=== PATIENT | female | born 1995 | race African-American/Black ===

== ENCOUNTER 2019-04-09 12:49 | Emergency (ER) | payer BC, SELFPAY ==
[2019-04-09 12:50] VITALS: BP 77/53; PULSE 101; RESP 30; TEMP 35.5; O2SAT 100; BMI 22.2
--- NOTE | 2019-04-09 13:04 | US_ITS ---
STUDY: ULTRASOUND TRANSVAGINAL CLINICAL: Female, 24 years old. PAIN TECHNIQUE: Transvaginal. Spectral analysis and Doppler flow were obtained. COMPARISON: None. FINDINGS: Normal uterine size measuring 6.6 cm in maximal craniocaudal dimension. There are no myometrial masses. Normal endometrial thickness measuring 3.7 mm. There are no endometrial masses, and there is no fluid in the endometrial cavity. Normal uterine cervix. Normal right ovary, measuring 2.6 x 3.3 x 1.2 cm. There are multiple follicles without a dominant cyst. Spectral analysis and Doppler flow of the right ovary is within normal limits. Normal left ovary, measuring 1.8 x 1.9 x 1.8 cm. There are multiple follicles without a dominant cyst. Spectral analysis and Doppler flow of the left ovary is within normal limits. There is no free fluid in the pelvis. Polycystic ovary disease: No. US/Transvaginal Non- IMPRESSION: Within normal limits examination. Electronically Signed: Danyelle Doherty MD at 14:06 EST Tel , Service support ,
--- NOTE | 2019-04-09 13:07 | ED.DCSUM_ITS ---
History of Present Illness Chief Complaint: Abd Pain Informant: Patient Current Severity: Severe Maximum Severity: Moderate Narrative: Patient is presenting with 2 hours of sharp stabbing abdominal pain mostly left lower pelvic region however it is somewhat generalized. She has no fever chills cough or congestion. No flank pain, patient denies dysuria or vaginal bleeding. She denies . She has nausea and she is hyperventilating secondary to pain. Past Medical History - Allergies and Home Meds Allergies/Adverse Reactions: Allergies No Known Allergies Allergy (Verified 04/09/19 12:57) Primary Care Physician: Ac Garcia,Out of [NON-STAFF] - Past Medical History: None Lives: - - She is a college student Review of Systems All systems negative except as indicated General: Denies: Fever ENT: Denies: Sore throat Cardiovascular: Reports: Heart racing Respiratory: Denies: Cough, Sputum Gastrointestinal: Reports: Abdominal pain, Nausea, Vomiting. Denies: Diarrhea, Constipation Genitourinary: Denies: Dysuria, Hematuria Musculoskeletal: Denies: Myalgias, Arthralgias Skin: Denies: Rash Neurological: Reports: Parasthesia, - - Secondary to hyperventilation. Denies: Headache, Weakness Psych: Reports: Anxiety Endocrine: Denies: Polydipsia Hematologic: Denies: Easy bruising, Easy bleeding Physical Exam Vital Signs/Narrative: Vital Signs Temp Pulse Resp BP Pulse Ox 04/09/19 12:50 96 F L 101 H 30 H 77/53 L 100 General: - - Patient appears in distress she is actively vomiting she is also hyperventilating Head: Normocephalic Eyes: Perrl ENT: Moist mucous membranes, No rhinorrhea Neck: Supple Cardiovascular: Regular rhythm, No murmurs, Tachycardia Respiratory: No distress, CTA bilaterally Abdomen: - - There is mostly left lower quadrant abdominal pain in the pelvic region. No guarding or rebound. No CVA tenderness Back: Nontender. Negative for: CVA tenderness Extremities: No edema Skin: No rash Neurological: Alert, Oriented x3, Normal Sensation Psychological: - - Anxious Diagnostic/Tx/Re-eval - Medical Decision Making Patient has a normal emergency department work-up. I talked to her she just started her menstrual cycle this morning. This may be pelvic cramps, she will return if she has fever chills or worsening symptoms other than that should be discharged in stable condition with antiemetics and anti-inflammatories. ED Disposition - Plan for ED Patient: Disposition: Home or Assisted Living Diagnosis: Pelvic pain Instructions: ABDOMINAL PAIN, Unknown Cause, (Female) Prescriptions: Naproxen [Naprosyn] 500 mg PO BID PRN #20 tab Prescription Printed Ondansetron [Zofran Odt] 4 mg PO Q8H PRN PRN #10 tab PRN Reason: Nausea Prescription Printed Referrals: [facility] Doctor,Out of [NON-STAFF] -
[2019-04-09] MEDS: Ondansetron 4 MG/2 ML Vial IV (13:10)
[2019-04-09] MEDS: Morphine 4 MG/ML Syringe IV (13:13)
[2019-04-09 13:16] VITALS: BP 126/94; PULSE 74; RESP 16; O2SAT 100
[2019-04-09 13:19] LABS: Absolute Neutrophil Count 6.1 X10^3/uL (2.0-7.7); Basophil# 0.01 X10^3/uL; Basophil% 0.1 % (0-1); Eosinophil# 0.01 X10^3/uL; Eosinophils% 0.1 % (0-5); Hematocrit 39.2 % (37-47); Hemoglobin 13.4 g/dL (12.0-15.0); Lymphocyte % 20.8 % (19-41); Mean Corp Hgb Conc 34.2 g/dL (32-36); Mean Corpuscular Hgb 30.6 pg (27.0-32.0); Mean Corpuscular Volume 89.5 fL (81-99); Monocyte# 0.36 X10^3/uL; Monocyte% 4.4 % (0-10); NRBC Flagged by Analyzer 0 % (0-5); Neutrophil # 6.05 X10^3/uL (2.7-7.7); Platelet Count 346 K/mm3 (150-450); RBC Distribution Width CV 12.5 % (11.6-14.6); Red Blood Count 4.38 M/mm3 (4.2-5.4); White Blood Count 8.2 K/mm3 (4.4-11.0)
[2019-04-09] MEDS: Ketorolac 15 MG/ML Vial IV (13:20)
[2019-04-09 13:26] LABS: Internal QC Validated? YES +Cl - CLEAR BKGD; Pregnancy, Serum, hCG Quali. NEGATIVE Negative
[2019-04-09 13:33] LABS: ALB/GLOB Ratio 0.7 RATIO (0.9-2.4); AST(SGOT) 21 U/L (15-37); Alanine Aminotransfer ALT/SGPT 19 U/L (13-56); Albumin, Serum 4.1 g/dL (3.2-5.0); Alkaline Phosphatase 75 U/L (45-117); Anion Gap 12 (5-15); BUN 9 mg/dL (7-18); BUN/Creat Ratio 9.3 RATIO (10-20); Calcium,Total 9.1 mg/dL (8.5-10.1); Chloride 106 mmol/L (98-107); Creatinine, Serum 0.97 mg/dL (0.55-1.02); EST Glomerular Filtration Rate 76 mL/min (>60); Est Glom Filt Rate - Afr Amer 92 mL/min (>60); Estimated Creatinine Clearance 75.25 ml/min; Glucose 144 mg/dL (74-106); Potassium 3.1 mmol/L (3.5-5.1); Protein, Total 10.1 g/dL (6.4-8.2); Sodium Level 136 mmol/L (136-145)
[2019-04-09 13:35] VITALS: BP 133/94
[2019-04-09 14:03] LABS: Bacteria 0 SEEN /hpf (None Seen); Mucous, Urine 0 SEEN /hpf (<or=2+); Red Blood Cells-Urine 0 SEEN /hpf (0-5); White Blood Cells 0 SEEN /hpf (0-5)
[2019-04-09 14:04] LABS: Color, Urine Yellow (Yellow); Glucose, Dipstick Normal (Normal); Ketone-Dipstick 15 mg/dl (Negative); Leukocyte Esterase-Dipstick 25 /ul (Negative); Nitrite-Dipstick Negative (Negative); Occult Blood-Urine 250 /ul (Negative); Protein-Dipstick 30 mg/dl (Negative); Urine Bilirubin Dipstick Negative (Negative); Urine Clarity Sl. Cloudy (Clear); Urine Urobilinogen Normal (Normal)
[2019-04-09 14:11] LABS: Amorphous Sediment 2+; Squamous Epithelial Cells - UA 0-5 SEEN /hpf (5-10)
[2019-04-09 15:03] VITALS: BP 113/76; PULSE 81; RESP 16; O2SAT 98
== END 2019-04-09 15:04 | disposition home or self-care (01) ==
PROVIDERS: Emergency Provider Emergency Medicine; PCP Pediatrics
DX: R10.2 Pelvic and perineal pain (principal)
CPT/HCPCS: 76830; 80053; 81001; 84703; 85025; 96374; 96375; 99283; J7030; J2405